=== PATIENT | male | born 1980 | race Caucasian/White ===

== ENCOUNTER 2021-09-15 02:34 | Emergency (ER) | payer SELFPAY ==
[2021-09-15 02:36] VITALS: BP 137/91; PULSE 70; RESP 20; TEMP 36.8; O2SAT 98; BMI 34.2
[2021-09-15 03:05] LABS: Absolute Lymphocyte Count 2.92 X10^3/uL (0.83-4.51); Absolute Neutrophil Count 2.4 X10^3/uL (2.0-7.7); Basophil# 0.04 X10^3/uL; Basophil% 0.7 % (0-1); Eosinophil# 0.08 X10^3/uL; Eosinophils% 1.4 % (0-5); Hematocrit 43.5 % (40-54); Hemoglobin 15.2 g/dL (13.0-16.5); Lymphocyte # 2.92 X10^3/ul (0.83-4.51); Lymphocyte % 49.7 % (19-41); Mean Corp Hgb Conc 34.9 g/dL (32-36); Mean Corpuscular Hgb 30.6 pg (27.0-32.0); Mean Corpuscular Volume 87.5 fL (80-94); Mean Platelet Vol. 10.1 fl (6.2-12.0); Monocyte# 0.44 X10^3/uL; Monocyte% 7.5 % (0-10); NRBC Flagged by Analyzer 0 % (0-5); Neutrophil # 2.39 X10^3/uL (2.7-7.7); Neutrophil % 40.5 % (47-70); Platelet Count 257 K/mm3 (150-450); RBC Distribution Width CV 12.3 % (11.6-14.6); RBC Distribution Width SD 39.2 fl (35.1-43.9); Red Blood Count 4.97 M/mm3 (4.6-6.2); White Blood Count 5.9 K/mm3 (4.4-11.0)
--- NOTE | 2021-09-15 03:22 | EDS_ITS ---
HPI HPI - GI History of Present Illness Chief Complaint: Abd Pain Narrative Narrative: 41-year-old male presenting with abdominal pain. He states he is having a gallbladder attack. He states he has had these in the past. He was told he has a stone in his gallbladder but has not scheduled a cholecystectomy yet. Patient states he lives in [place] but travels to [place] frequently and x- rays from. He plans on getting his gallbladder taken out in [place]. Patient states that the pain started about 4 hours ago when he describes it as radiating all across his whole abdomen even in the lower quadrants. Patient states he has been fasting and only eating fish and vegetables for his taoism. He denies any fatty food. He states he did drink one Coke before the pain started. He denies constipation or diarrhea. He denies fever or chills. He denies chest pain. PFSH PFSH Home Medications NK 09/15/21 [History Last Taken Unknown] Allergy/AdvReac Type Severity Reaction Status Date / Time No Known Allergies Allergy Verified 09/15/21 02:41 Social History Smoking Status: Current every day smoker tobacco type: cigarettes ROS ROS ED Constitutional Constitutional ED: Denies chills or fever(s) ENT ENT ED: Denies rhinorrhea or sore throat Cardiovascular Cardiovascular: Denies chest pain or palpitations Respiratory/Chest Respiratory/Chest: Denies cough or dyspnea Gastrointestinal Gastrointestinal: Reports abdominal pain and nausea; Denies constipation, diarrhea or vomiting Genitourinary Genitourinary ED: Denies dysuria or hematuria Musculoskeletal Musculoskeletal: Denies arthralgias or myalgias Integumentary Denies abscess or rash Neurologic Neurologic: Denies headache(s) or paresthesias Psychiatric Psychiatric: Denies anxiety or depression EXAM Physical Exam Const Vital Signs: 09/15/21 02:36 Temperature 98.2 F Temperature Source Temporal Pulse Rate 70 Respiratory Rate 20 H Blood Pressure 137/91 H Blood Pressure Mean 106 Pulse Ox 98 Oxygen Delivery Method Room Air Positive well nourished General Appearance ED: NAD; Negative for pallor HEENT Reports moist mucous membranes normocephalic and atraumatic Eyes PERRL and EOMs intact bilaterally Resp normal respiratory effort and clear to auscultation bilaterally Cardio regular rate and regular rhythm GI GI Narrative: Generalized tenderness in all 4 quadrants. Negative Daniel sign. Negative McBurney point tenderness. Abdomen nonperitoneal. Palpation: soft and tender Back/Spine no CVA tenderness Neuro CN's II-XII intact bilaterally Sensorium / Orientation: alert, oriented to person, oriented to place and oriented to time Psych mental status grossly normal Skin General Skin Exam: Negative for jaundice or pallor MDM MDM MDM Narrative Medical decision making narrative: Patient given morphine and Zofran for pain. He is concerned that it might be his gallbladder although the pain description seems to be everywhere. He does not have a Daniel sign. CBC shows his white blood cell count is 5.9, hemoglobin 15.2, hematocrit 43.5, platelets 257. LFTs all within normal limits. Lipase normal at 155. Creatinine is also normal as well as electrolytes. Based on patient's examination and lab work I do not believe he needs a right upper quadrant ultrasound or CAT scan. He is currently comfortable in the room. He was offered a referral for his gallbladder but he states he is going to go to [facility] over the holidays and have his gallbladder removed there. I will discharge the patient in stable condition. He is given return precautions. Impression: 1. Abdominal pain Lab Data Labs: Laboratory Results - last 24 hr 09/15/21 09/15/21 02:46 02:46 WBC 5.9 RBC 4.97 Hgb 15.2 Hct 43.5 MCV 87.5 MCH 30.6 MCHC 34.9 RDW Std Deviation 39.2 RDW Coeff of Ernie 12.3 Plt Count 257 MPV 10.1 Immature Gran % (Auto) 0.200 Neut % (Auto) 40.5 L Lymph % (Auto) 49.7 H [place] % (Auto) 7.5 Eos % (Auto) 1.4 Baso % (Auto) 0.7 Absolute Neuts (auto) 2.4 Absolute Lymphs (auto) 2.92 Nucleated RBC % 0 Sodium 139 Potassium 3.8 Chloride 106 Carbon Dioxide 27.0 Anion Gap 6 BUN 14 Creatinine 1.16 Estim Creat Clear Calc 98.42 Est GFR (MDRD) Af Amer 90 Est GFR (MDRD) Non-Af 74 BUN/Creatinine Ratio 12.1 Glucose 105 Calcium 8.9 Total Bilirubin 0.50 AST 18 ALT 50 Alkaline Phosphatase 66 Total Protein 7.6 Albumin 3.7 Globulin 3.9 Albumin/Globulin Ratio 0.9 Lipase 155 Discharge Plan Triage Chief Complaint: Abd Pain ED Provider: Ricco Banks Dx/Rx/DC Orders Instructions: ED Abdominal Pain Unkn Cause Male... Prescriptions: No Action NK RF: 0 Primary Care Provider: Care Physician,No Primary Referrals: Care Physician,No Primary [Primary Care Provider] - Disposition Disposition: Home, Self Care
[2021-09-15 03:23] LABS: ALB/GLOB Ratio 0.9 RATIO (0.9-2.4); AST(SGOT) 18 U/L (15-37); Alanine Aminotransfer ALT/SGPT 50 U/L (16-61); Albumin, Serum 3.7 g/dL (3.2-5.0); Alkaline Phosphatase 66 U/L (45-117); Anion Gap 6 (5-15); BUN 14 mg/dL (7-18); BUN/Creat Ratio 12.1 RATIO (10-20); Calcium,Total 8.9 mg/dL (8.5-10.1); Chloride 106 mmol/L (98-107); Creatinine, Serum 1.16 mg/dL (0.70-1.30); EST Glomerular Filtration Rate 74 mL/min (>60); Est Glom Filt Rate - Afr Amer 90 mL/min (>60); Estimated Creatinine Clearance 98.42 ml/min; Globulin 3.9 g/dL (2.2-4.2); Glucose 105 mg/dL (74-106); Lipase 155 U/L (73-393); Potassium 3.8 mmol/L (3.5-5.1); Protein, Total 7.6 g/dL (6.4-8.2); Sodium Level 139 mmol/L (136-145)
[2021-09-15] MEDS: Morphine 4 MG/ML Syringe IV (03:29)
[2021-09-15 04:17] VITALS: BP 117/81; PULSE 76; RESP 18; O2SAT 99
== END 2021-09-15 04:17 | disposition home or self-care (01) ==
PROVIDERS: Emergency Provider Student in an Organized Health Care Education/Training Program
DX: R10.9 Unspecified abdominal pain (principal); F17.210 Nicotine dependence, cigarettes, uncomplicated
CPT/HCPCS: 80053; 83690; 85025; 96374; 99285; A4216